=== PATIENT | female | born 1980 | race Caucasian/White ===

== ENCOUNTER 2019-12-13 15:47 | Outpatient (CLI) | payer OTHER ==
--- NOTE | 2019-12-13 16:19 | RAD ---
PA AND LATERAL VIEWS OF THE CHEST: 12/13/19 HISTORY: Cough. FINDINGS: The cardiomediastinum is normal. The lungs are expanded and clear. The bony thorax is normal. IMPRESSION: Normal exam. POS: [facility]
== END 2019-12-13 15:48 | disposition home or self-care (01) ==
LOC: RAD-FRANK 15:47
DX: R05 Cough (principal)
CPT/HCPCS: 71046